=== PATIENT | female | born 1980 | race Caucasian/White ===

== ENCOUNTER 2016-04-06 18:54 | Emergency (ER) | payer MEDICAID ==
[2016-04-06 19:08] VITALS: BMI 48.6
--- NOTE | 2016-04-06 19:26 | EDPRACDOC ---
- General Information Chief Complaint: Abdominal Pain Stated Complaint: ABD PAIN Time Seen by Provider: 04/06/16 19:20 Mode Of Arrival: Car Home Medications: Home Medications Cephalexin Monohydrate [Keflex] 500 mg PO Q6H #20 cap 04/06/16 Naproxen Sodium 500 mg PO BID PRN #20 tablet.sa 04/06/16 Sennosides [Ex-Lax] 30 mg PO .ONCE 04/06/16 Allergies/Adverse Reactions: Allergies Allergy/AdvReac Type Severity Reaction Status Date / Time clindamycin Allergy Hives* Verified 04/06/16 20:08 - History of Present Illness Onset: 2 days HPI: PT COMPLAINS OF LEFT LOWER AND SUPRAPUBIC ABD PAIN, STATES PAIN IS SHARP, NO EXAC/AMEL FACTORS, NO FEVER OR CHILLS, NO N/V/D, STATES THAT EARLIER TODAY WHILE URINATING SHE FELT LIKE "SOMETHING NEEDED TO COME OUT", STATES HAS AN IUD THAT IS DUE TO BE REMOVED SOON. Pain Location: Reports: LLQ, Suprapubic Pain Context: Reports: Spontaneous Pain Severity: Severe Pain Quality: Reports: Sharp, Stabbing Pain Radiation: Reports: No Radiation Last Menstrual Period: mirena IUD : No Control Method: Reports: IUD Adult Abdominal History: Denies: Abdominal Surgery, Urolithiasis, Bowel Obstruction, Similar Pain (dx) Female Abdominal History: Denies: Abdominal Surgery, UTI, Ectopic, PID, Urolithiasis, Similar Pain (dx) Modifying Factors: improves with: Nothing Female Associated Signs & Symptoms: Reports: Dysuria. Denies: Nausea, Frequency , Vaginal Bleeding, Vomiting, Hematemesis, Anorexia, Diarrhea, Melena, Fever, Urgency, Hematuria, Chills, Vaginal Discharge Oral Intake: Normal Urinary Output: Normal ED Past Medical History - History Reviewed Yes Nurses notes reviewed and agree except as marked No Past Medical History: Yes Patient has no past medical history - Social Medical History Smoking Status: Never smoker ETOH: None Substance Abuse: None EDM Review of Systems - Review of Systems Constitutional: negative: Chills, Fever Eyes: negative: Blurred Vision, Double Vision Ears: negative: Drainage Throat: negative: Pain Nose: negative: Congestion, Discharge Respiratory: negative: Cough, Shortness of Breath, Wheezing Cardiovascular: negative: Chest Pain, Palpitations Gastrointestinal: Pain. negative: Diarrhea, Nausea, Vomiting Genitourinary: negative: Dysuria, Frequency, Vaginal Discharge, Vaginal Bleeding Neurological: negative: Dizziness, Headache, Numbness, Weakness Musculoskeletal: No Symptoms Reported Integumentary: No Symptoms Reported - Physical Exam Constitutional: Alert (Awake), No apparent distress Oriented to: Time, Person, Place Last recorded Vital Signs: Last Vital Signs Temp 97.7 F 04/06/16 19:05 Pulse 113 04/06/16 19:05 Resp 20 04/06/16 19:05 BP 137/92 04/06/16 19:05 Pulse Ox 97 04/06/16 19:05 Oxygen Pulse Oxygen Saturation 97 O2 Device Room Air Oxygen Flow Rate Fraction of Inspired Oxygen ( FIO2) - HEENT Head: Normal ( normocephalic) Eye Exam: Normal (PERRL, EOMI, Sclera white) Oropharynx: Normal (Pharynx:Moist without exudate,Gums-no swelling) Tympanic Membrane: Normal ENT EAC: Normal TMJ: Normal Nose: No Symptoms Reported (septum midline) Neck: Normal (FROM, trachea at midline) - Respiratory/Cardiovascular Respiratory: Normal - CTA (BBS clear to auscultation without adventitious sounds ) Cardiovascular: Normal (RRR without murmur, gallop or rub) - GI Auscultation: Normal (NABS) Palpation: Normal (Soft,No rebound or guarding, non distended) Tenderness: Mild, LLQ, Suprapubic. negative: Guarding, Rebound, Rigidity Holt's Sign: Negative - Bladder: Normal External: Normal Vagina: Discharge (THIN, WHITE). negative: Blood, Lesions, Tissue Cervix: Discharge (THIN, WHITE). negative: Blood, Tissue, Tenderness, Open Uterus: Normal size Adnexa: Bilateral: Normal - Musculoskeletal Back: Normal (Non-Tender) Extremities: Normal (Normal tone, Pulses 2+ No cyanosis or edema, FROM) - Integumentary Skin: Normal, Warm, Dry Lymphatics: Normal (no adenopathy) - Neurologic Memory Impaired: Normal Motor Function: Normal (Normal tone, Pulses 2+ No cyanosis or edema, FROM) Cranial Nerve: Normal (CN II-X11 intact sensation, strength 5/5) Cerebellar: Normal Mood Description: Normal Perception: Normal - Differential Diagnosis UTI, Ureterolithiasis - Results Urine Color Yellow 04/06/16 19:30 Urine Clarity Sl cldy 04/06/16 19:30 Urine pH 5.0 (5.0-8.0) 04/06/16 19:30 Ur Specific [place] 1.020 (1.003-1.035) 04/06/16 19:30 Urine Protein Neg (NEG/TRACE) 04/06/16 19:30 Urine Glucose (UA) Neg (NEGATIVE) 04/06/16 19:30 Urine Ketones Neg (NEGATIVE) 04/06/16 19:30 Urine Occult Blood Neg (NEG/TRACE) 04/06/16 19:30 Urine Nitrite Neg (NEGATIVE) 04/06/16 19:30 Urine Bilirubin Neg (NEGATIVE) 04/06/16 19:30 Urine Urobilinogen <2.0 MG/DL (0-1) 04/06/16 19:30 Ur Leukocyte Esterase 2+ (NEGATIVE) H 04/06/16 19:30 Urine RBC 10-20 (0-5) H 04/06/16 19:30 Urine WBC 10-20 (0-5) H 04/06/16 19:30 Ur Epithelial Cells 4+ 04/06/16 19:30 Urine Bacteria 1+ (NEG/FEW) H 04/06/16 19:30 Urine Mucus Sm amt (NEG/OCC) 04/06/16 19:30 Urine Test Neg (NEGATIVE) 04/06/16 19:30 Microbiology 04/06/16 19:51 CIRILO Preparation - Final Vaginal 04/06/16 19:51 Trichomonas Wet Mount - Final Vaginal Lab Results 04/06/16 04/06/16 19:30 19:30 Urine Color Yellow Urine Clarity Sl cldy Urine pH 5.0 Ur Specific [place] 1.020 Urine Protein Neg Urine Glucose (UA) Neg Urine Ketones Neg Urine Occult Blood Neg Urine Nitrite Neg Urine Bilirubin Neg Urine Urobilinogen <2.0 Ur Leukocyte Esterase 2+ H Urine RBC 10-20 H Urine WBC 10-20 H Ur Epithelial Cells 4+ Urine Bacteria 1+ H Urine Mucus Sm amt Urine Test Neg Decision Time to Discharge: 21:28 - Departure Disposition: Home Condition: Stable Final Diagnosis: Abdominal pain UTI (urinary tract infection) Qualifiers: Urinary tract infection type: site unspecified Hematuria presence: without hematuria Qualified Code(s): N39.0 - Urinary tract infection, site not specified Instructions: Acute Abdominal Pain (ED), Urinary Tract Infection in Women (ED) Education/Counseling Given To: Patient Education/Counseling Given Regarding: Diagnosis, Treatment, Prognosis, Follow Up Referrals: Lilia Rao MD [Primary Care Provider] - One Week Prescriptions: New Cephalexin Monohydrate [Keflex] 500 mg PO Q6H #20 cap Naproxen Sodium 500 mg PO BID PRN #20 tablet.sa PRN Reason: Pain No Action Sennosides [Ex-Lax] 30 mg PO .ONCE Additional Instructions: REST, DRINK PLENTY OF FLUIDS, RETURN TO THE ED FOR ANY WORSENING SYMPTOMS OR CONCERNS.
[2016-04-06 19:51] LABS: LEUKOCYTES/URINE 2+ (NEGATIVE); NITRITE/URINE NEG (NEGATIVE); URINE OCCULT BLOOD NEG (NEG/TRACE)
[2016-04-06 21:48] VITALS: BP 121/88; PULSE 94; TEMP 98
[2016-04-08 21:41] LABS: CHLAMY BY NUCLEIC ACID AMP Negative (Negative)
[2016-04-09 08:17] LABS: GC BY NUCLEIC ACID AMP Negative (Negative)
== END 2016-04-06 21:35 | disposition home or self-care (01) ==
LOC: ED 18:54
DX: N39.0 Urinary tract infection, site not specified (principal)
CPT/HCPCS: 81001; 81025; 87210; 87220; 87491; 87591; 99282